=== PATIENT | female | born 1945 | race Asian ===

== ENCOUNTER → 2016-10-18 | Outpatient (CLI) | payer OTHER ==
[~2016-10-18] VITALS: Ht 158.1 cm; Wt 64.5 kg
[~2016-10-18] MED LIST: ASPIR 8181 M1 PO; BENICAR20 MG PO; BYSTOLIC10 MG PO; CALCIUM CITRAT1 EA14 PO; FISH OIL 1,0001 EAC7 PO; SINGULAIR10 MG PO; VEGETARIAN GLU750 MG PO; VITAMIN C1000 MG PO; VITAMIN E1000 UNI1 PO; ZYRTEC10 M3 PO
[2016-10-18 13:15] VITALS: BP 143/96
== END | disposition home or self-care (01) ==
LOC: IVINF 10-15 16:00
DX: M85.80 Other specified disorders of bone density and structure, unspecified site (principal)
CPT/HCPCS: 96365; J3489